=== PATIENT | male | born 1945 | race Caucasian/White ===

== ENCOUNTER → 2017-12-04 14:35 | Outpatient (CLI) | payer MEDICARE, OTHER | END | disposition home or self-care (01) | LOC: D.CT 14:35 | DX: R10.9 Unspecified abdominal pain (principal) ==

== ENCOUNTER 2019-11-23 07:27 | Day surgery (SDC) | payer MEDICARE, OTHER ==
[~2019-11-23] VITALS: Ht 167.6 cm; Wt 70.3 kg
[~2019-11-23 07:27] MED LIST: BAYER CHEWABLE81 MG PO; LISINOPRIL10 MG PO; NORVASC10 MG PO; PROTONIX40 MG PO; ZETIA10 MG PO
[2019-11-23 07:52] LABS: BASOPHILS 0.1 % (0-2); EOSINOPHILS 0.6 % (0-7); HEMATOCRIT 38.6 % (42.0-54.0); HEMOGLOBIN 13.2 g/dL (13.5-17.5); IMMATURE GRANULOCYTES 0.1 % (0-5); LYMPHOCYTES 33.7 % (15-50); MCH 37.2 pg (26.0-34.0); MCHC 34.2 g/dL (31.0-37.0); MCV 108.7 fL (80.0-100.0); MEAN PLATELET VOLUME 8.8 fL (7.4-10.4); MONOCYTES 5.9 % (2-11); NEUTROPHILS 59.6 % (40-80); PLATELET COUNT 101 10x3/uL (130-400); RBC 3.55 10x6/uL (4.20-6.10); RDW 12.9 % (11.5-14.5); WBC 6.7 10x3/uL (4.8-10.8)
[2019-11-23 08:36] VITALS: BP 128/61; Ht 167.6 cm; Wt 70.3 kg
[2019-11-23] MEDS ORDERED: FUROSEMIDE20 MG PO (12:19)
[2019-11-23] MEDS ORDERED: FLOMAX0.4 MG PO (12:19)
[2019-11-23] MEDS ORDERED: HYDROCODON-ACE1 EAC7 PO (12:19)
--- NOTE | 2019-11-23 16:25 | NUR ---
RIDE ARRIVED. ESCORTED OUT VIA W/C WITH RIDE AWAITING TO DRIVE HOME.
== END 2019-11-23 16:25 | disposition home or self-care (01) ==
LOC: D.OPS 07:27 → D.PAN 10:00 → D.OPS 10:00
PROVIDERS: Anesthesiology; ATTEND Surgery
DX: K40.90 Unilateral inguinal hernia, without obstruction or gangrene, not specified as recurrent (principal); I10 Essential (primary) hypertension; I25.2 Old myocardial infarction; K21.9 Gastro-esophageal reflux disease without esophagitis